=== PATIENT | male | born 1960 | race Caucasian/White ===

== ENCOUNTER 2024-10-24 06:30 | Outpatient (RCR) | payer OTHER, SELFPAY | END 2024-11-22 23:59 | disposition home or self-care (01) | LOC: MPT 06:30 | PROVIDERS: Visit Provider Orthopaedic Surgery | DX: M54.9 Dorsalgia, unspecified (principal); G89.29 Other chronic pain | CPT/HCPCS: 97110; 97162 ==

== ENCOUNTER 2024-10-24 11:38 | Emergency (ER) | payer OTHER, SELFPAY ==
--- NOTE | 2024-10-24 11:39 | USR_ITS ---
PROCEDURE INFORMATION: Exam: US Duplex Right Lower Extremity Veins, Limited Exam date and time: 10/24/2024 12:25 PM Age: 64 years old Clinical indication: Swelling (edema) of limb; Lower extremity, right; Additional info: Leg swelling TECHNIQUE: Imaging protocol: Real-time duplex ultrasound of the right extremity with 2-D dunn scale, color Doppler flow and spectral waveform analysis including responses to compression and other maneuvers (when performed) with image documentation. Limited exam was focused on the right lower extremity veins. COMPARISON: CR (LOW EXM, ) 10/24/2024 11:58 AM FINDINGS: Right deep veins: Unremarkable. The common femoral, femoral, proximal profunda femoral and popliteal veins are patent without thrombus. Normal Doppler waveforms. Normal compressibility and/or augmentation response. Superficial veins: Greater saphenous vein at the saphenofemoral junction is patent without thrombus. Soft tissues: Unremarkable. US/[place] [id number] IMPRESSION: No evidence of deep vein thrombosis.
--- OUTSIDE RECORDS SUMMARY | 2024-10-24 11:44 | XMS_ITS | Clinical Summary ---
Author Organization [facility] Address [address] [place] [address] Phone Care Team Providers Care Cartographic Technician Name Role Phone Adná Sawyer MD Primary Care Provider [phone] Allergies Active Allergy Reactions Criticality Noted Date Comments Penicillins Rash Low 03/05/2009 Medications multivitamin (MULTIPLE VITAMIN) Oral tablet Take 1 Tab by mouth daily. Active VIT C/E/ZN/COPPR/LUTEI N/ZEAXAN (PRESERVISION AREDS 2 ORAL) Take by mouth. A ctive aspirin (ECOTRIN EC) 81 mg Tablet, Delayed Release (E.C.) Take 81 mg by mouth daily. Active ascorbic acid, vitamin C, (VITAMIN C) 100 mg Tablet Take 100 mg by mouth daily. Active atorvastatin (LIPITOR) 20 mg tabletIndications: Hyperlipidemia, unspecified hyperlipidemia type Take 1 tablet by mouth once daily 90 Tablet 3 0 Active amitriptyline (ELAVIL) 10 mg tabletIndications: Neuroforaminal stenosis of cervical spine,Chronic tension-type headache, not intractable Take 2 Tablets (20 mg) by mouth daily at bedtime. 60 Tablet 1 0 Active losartan (COZAAR) 100 mg tabletIndications: Essential hypertension Take 1 tablet by mouth once daily 90 Tablet 2 0 Active cpap remote medical coder AUTO CPAP@ 5-15cwp with heated humidifier; Face to Face within 6 mo: yes; Length of Need: 99 mo; nasal mask with headgear q 6 mo; mask only q 3 mo;2cushions q mo; Tubing Heated Yes; non-heated No 1/ 3 mo; H20 Chamber 1/ 6 mo; chin strap/ 6 mo; filters (disp 2 / mo, perm 1 /6 mo) Resmed 1 Each 0 Active albuterol HFA 90 mcg inhalerIndications :Acute bronchitis, unspecified organism Take 2 Puffs by inhalation every 4 hours as needed for Shortness of Breath or Wheezing. 8 Gram 1 0 Active doxycycline hyclate (VIBRAMYCIN) 100 mg capsule TAKE 1 CAPSULE BY MOUTH TWICE DAILY FOR 10 DAYS 0 Active methylPREDNISolone (MEDROL DOSPACK) 4 mg Tablets, Dose Pack TAKE BY MOUTH DIRECTED ON INSIDE OF PACKAGE 0 Active potassium chloride (KLOR-CON) 20 mEq Extended Release tabletIndications: Hypokalemia Take 1 Tablet (20 mEq) by mouth daily. 5 Tablet 0 Active amLODIPine (NORVASC) 10 mg tablet Take 1 tablet by mouth once daily 90 Tablet 1 0 Active HYDROCHLOROTHIAZID E 25 mg tabletIndications: Essential hypertension Take 1 tablet by mouth once daily 90 Tablet 1 1 Active hydrALAZINE (APRESOLINE) 25 mg tablet TAKE 1 TABLET BY MOUTH EVERY 6 HOURS 360 Tablet 1 Active allopurinoL (ZYLOPRIM) 100 mg tabletIndications: CLL (chronic lymphocytic leukemia) ([facility]/HCC) Take 1 Tablet (100 mg) by mouth 2 times daily. 180 Tablet 1 Active Active Problems Problem Noted Date Diagnosed Date Neuroforaminal stenosis of cervical spine 2019 Hypertensive emergency 10/19/2019 Bradycardia 10/19/2019 Severe obesity (BMI 35.0-39.9) with comorbidity 10/03/2019 CLL (chronic lymphocytic leukemia) 05/31/2017 Overview (05/31/2017): Followed by oncology. Essential hypertension 11/14/2014 Chronic tension-type headache, not intractable 0 11/14/2014 Nasal turbinate hypertrophy 06/02/2014 Chronic sinusitis 06/02/2014 Diplopia 06/02/2014 OM (otitis media), recurrent 03/15/2014 Carpal tunnel syndrome 01/23/2010 Hyperlipidemia 09/13/2009 Diverticulosis 09/13/2009 Resolved Problems Problem Noted Date Diagnosed Date Resolved Date Obesity (BMI 35.0-39.9 without comorbidity) 10/03/2019 10/03/2019 Family History Medical History Relation Name Comments Cancer Father skin Diabetes Father Hypertension Father Cancer Mother Hypertension Mother Relation Name Status Comments Father Mother Alive Social History Tobacco Use Types Packs/Day Years Used Date Smoking Tobacco: Never Smokeless Tobacco: Never Tobacco Cessation:Counseling Given: No Alcohol Use Standard Drinks/Week Comments No 0 (1 standard drink = 0.6 oz pur e alcohol) Sex and Gender Information Value Date Recorded Sex Assigned at Not on file 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 Gender Identity Not on file Sexual Orientation Not on file Occupation Industry Job Start Date Job End Date Not on file Not on file Not on file Not on file Last Filed Vital Signs Vital Sign Reading Time Taken Comments Blood Pressure 118/76 07/18/2020 2:10 PM CDT Pulse 65 07/18/2020 2:10 PM CDT Temperature 36.1 C (97 F) 07/18/2020 2:10 PM CDT Respiratory Rate 16 12/27/2019 4:19 PM SPACE CONTROLLER Oxygen Saturation 99% 07/18/2020 2:10 PM CDT Inhaled Oxygen Concentration - - Weight 117.9 kg (260 lb) 07/18/2020 2:10 PM CDT Height 177.8 cm (5' 10 ) 07/18/2020 2:10 PM CDT Body Mass Index 37.31 07/18/2020 2:10 PM CDT Plan of Treatment Health Maintenance Due Date Last Done Comments DTAP/TDAP/TD VACCINES (1 - Tdap) 1980 ZOSTER VACCINE (1 of 2) 1980 COLORECTAL SCREENING 2006 Colorectal Cancer Screening 2006 FIT-DNA Q 3 years 2006 FIT/FOBT Q 1 year 2006 Flex Sig/CT Colonography Q 5 years 2006 RSV VACCINE (60+ or ) (1 - Risk 60-74 years 1-dose series) 2021 Pre-Diabetes and Diabetes Screening 10/16/2022 10/17/2019 INFLUENZA VACCINE (#1) 2024 12/27/2019 Preventative Visit- Commercial Completed 0 03/23/2024, 12/08/2023, 02/19/2023, Additional history exists Procedures Procedure Name Priority Date/Time Associated Diagnosis Comments HEMOGLOBIN A1C Routine 10/17/2019 5:25 PM CDT Hyperglycemia from Last 3 Months or Most Recently Relevant to Health Maintenance Results * HEMOGLOBIN A1C (10/17/2019 5:25 PM CDT) HEMOGLOBIN A1C 5.5 See Comment % 10/17/2019 8:52 PM CDT [facility] EST. AVG GLUCOSE, A1C 111 mg/dL 10/17/2019 8:52 PM CDT [facility] Blood Venipuncture / Unknown 10/17/2019 5:25 PM CDT 10/17/2019 8:20 PM CDT Narrative [facility] - 10/17/2019 8:52 PM CDT HGB A1C INTERPRETATION NORMAL: <5.7% PRE-DIABETES: 5.7 - 6.4% DIABETES: 6.5% OR GREATER Falsely low A1C measurements can occur when: 1. Anemia and/or hemolytic anemia is present. 2. Hemoglobin variants present. 3. Renal failure. 4. Transfusion of blood product in the last 120 days. We recommend ordering a fructosamine test(UVP2542) to more accurately assess glycemic status if any of the above conditions are present. Patricia Harris WEBSPHERE ARCHITECT CHEMISTRY ORDERABLES Final Res ult [facility] CLIA# [id number] [address] [place] [address] from Last 3 Months or Most Recently Relevant to Health Maintenance Insurance [employer] OPEN ACCESS PLUS Advance Directives For more information, please contact: [phone] * Full Code (Latest Code Status on File) Date Activated Date Inactivated Comments 10/19/2019 5:52 AM 10/21/2019 2:58 PM * Full Code Date Activated Date Inactivated Comments 02/26/2010 8:11 AM 02/27/2010 2:32 AM * Full Code Date Activated Date Inactivated Comments 02/26/2010 8:02 AM 02/26/2010 8:11 AM Care Teams Cartographic Technician Relationship Specialty Start Date End Date Adán Sawyer MD [address], [place] [address] PCP - General Family Practice 11/09/14
--- OUTSIDE RECORDS SUMMARY | 2024-10-24 11:44 | XMS_ITS | Encounter Summary ---
Author Organization [facility] Address [address] [place] [address] Care Team Providers Care Conservation Engineer Name Role Phone Adán Sawyer MD Primary Care Provider [phone] Encounter Details Date Type Department Care Team (Late st Contact Info) Description 04/22/2000 Outpatient Historical [facility] E [place] 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
--- OUTSIDE RECORDS SUMMARY | 2024-10-24 11:44 | XMS_ITS ---
Author Organization [facility] Address [address] [place] [address] Phone Care Team Providers Care Chemical Instrumentation Officer Name Role Phone Adán Sawyer MD Primary Care Provider [phone] Active Problems Problem Noted Date Diagnosed Date [...] tunnel syndrome 01/23/2010 Hyperlipidemia 09/13/2009 Diverticulosis 09/13/2009 Current Treatment and Therapy Plans No current plan information found. Past Treatment and Therapy Plans No past plan information found. Lifetime Dose Tracking * Chemical Lifetime Dose Automatic Entry Manual Entr y Effective Dose 25.8 mSv 25.8 mSv 0 mSv Total DLP 2,094 DLP 2,094 DLP 0 DLP CTDIvol Max 28.4 mGy 28.4 mGy 0 mGy CTDIvol Min 25.5 mGy 25.5 mGy 0 mGy Resolved Problems Problem Noted Date Diagnosed Date Resolved Date Obesity (BMI 35.0-39.9 without comorbidity) 10/03/2019 10/03/2019
--- OUTSIDE RECORDS SUMMARY | 2024-10-24 11:44 | XMS_ITS | Encounter Summary ---
Author Organization [facility] Address [address] [place] [address] Care Team Providers Care Immigration Associate Name Role Phone Adán Sawyer MD Primary Care Provider [phone] Encounter Details Date Type Department Care Team (Latest Contact Info) Description 04/22/2000 Outpatient Historical [facility] Ear, Nose and Throat E [place] [address] 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
--- OUTSIDE RECORDS SUMMARY | 2024-10-24 11:44 | XMS_ITS | Encounter Summary ---
Author Organization [facility] Address [address] [place] [address] Care Team Providers Care Hotel Services Sales Representative Name Role Phone Adán Sawyer MD Primary Care Provider [phone] Encounter Details Date Type Department Care Team (Latest Contact Info) Description 12/09/2000 Outpatient [facility] Ear, Nose and Throat [address] [place] 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
--- OUTSIDE RECORDS SUMMARY | 2024-10-24 11:44 | XMS_ITS | Encounter Summary ---
Author Organization [facility] Address [address] [place] [address] Care Team Providers Care Can Feeder Name Role Phone Adán Sawyer MD Primary Care Provider [phone] Encounter Details Date Type Department Care Team (Late st Contact Info) Description 12/09/2000 Outpatient Historical [facility] Ear, Nose and Throat E [place] [address] 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
[2024-10-24 11:52] VITALS: BP 148/82; PULSE 59; RESP 18; TEMP 36.5; O2SAT 96
--- NOTE | 2024-10-24 11:52 | XRR_ITS ---
PROCEDURE INFORMATION: Exam: XR Right Knee Exam date and time: 10/24/2024 11:58 AM Age: 64 years old Clinical indication: Swelling or effusion of joint; Knee; Additional info: Knee pain TECHNIQUE: Imaging protocol: Radiologic exam of the right knee. Views: 3 views. COMPARISON: No relevant prior studies available. FINDINGS: Bones/joints: Normal. Soft tissues: There is a suprapatellar effusion. No radiopaque foreign bodies identified. XR/XR knee RT 3V* [id number] IMPRESSION: Suprapatellar effusion.
--- NOTE | 2024-10-24 11:53 | W.ED.GENADLT ---
HPI - General Adult General: Chief complaint: Extremity Injury, Lower Stated complaint: rt leg swollen Time Seen by Provider: 10/24/24 11:39 Source: patient Mode of arrival: ambulatory Limitations: no limitations History of Present Illness: 64-year-old male states been having some pain started in his right hip and radiate down his leg is gone for 2 weeks. States been seeing a chiropractor he has now had some swelling in his right leg with some right knee pain. States he was concerned about a blood clot states pain is worse with movement no history of blood clots in the past denies any injuries. Associated symptoms: Deny chest pain, dyspnea, headache(s), nausea, rash or vomiting Related Data Home Medications ?Medication ?Instructions ?Recorded ?Confirmed atorvastatin 20 mg tablet 20 mg PO DAILY 12/01/21 02/04/24 fexofenadine 60 mg tablet 60 mg PO BID 12/01/21 02/04/24 furosemide 20 mg tablet (Lasix) 20 mg PO DAILY 12/01/21 02/04/24 gabapentin 300 mg capsule 300 mg PO TID 12/01/21 02/04/24 hydralazine 25 mg tablet 25 mg PO TID 12/01/21 02/04/24 hydrochlorothiazide 25 mg tablet 25 mg PO DAILY 12/01/21 02/04/24 losartan 100 mg tablet 100 mg PO DAILY 12/01/21 02/04/24 multivitamin 1 tab PO DAILY 12/01/21 02/04/24 Previous Rx's ?Medication ?Instructions ?Recorded albuterol sulfate 90 mcg/actuation 2 puff inhalation Q6H PRN 07/10/23 aerosol inhaler shortness of breath or wheezing #8.5 grams ofncafzoenpabmc-fpovhnywxnmvfqv-SH 5 ml PO Q6H PRN cold symptoms #118 07/10/23 2 mg-30 mg-10 mg/5 mL oral syrup mL (Bromfed DM) prednisone 20 mg tablet 20 mg PO DAILY 5 days #5 tabs 07/10/23 clarithromycin 500 mg tablet 500 mg PO BID 10 days #20 tabs 02/04/24 Allergies Allergy/AdvReac Type Severity Reaction Status Date / Time Penicillins Allergy Intermediate rash Verified 02/04/24 13:10 Review of Systems Const: Denies: fever(s), chills, body aches or change in appetite ENMT: Denies: throat pain or dental pain Card: Denies: chest pain Resp: Denies: dyspnea GI: Denies: abdominal pain, nausea, vomiting or diarrhea Musc: Reports: extremity pain; Denies: neck pain or back pain Skin/Breast: Denies: rash Neuro: Denies: headache(s) PFSH ED PFSH: Social History Smoking and tobacco/nicotine status: never used tobacco/nicotine Physical Exam Const: COMMON NORMALS: no acute distress, patient oriented x3 and healthy appearing HENMT: COMMON NORMALS: normocephalic and atraumatic HEAD & SCALP: normocephalic and atraumatic Eye: COMMON NORMALS: Equal, round and reactive pupils present and EOMs intact bilaterally PUPIL: Yes Equal, round and reactive pupils present Neck/C-Spine: COMMON NORMALS: full ROM and supple Chest: COMMONS NORMALS: normal inspection of the chest Resp: COMMON NORMALS: normal respiratory effort Cardio: COMMON NORMALS: regular rate and regular rhythm RATE: regular rate RHYTHM: regular rhythm Extremity: COMMON NORMALS: full ROM NARRATIVE EXTREMITY EXAM: Slight swelling noted to right lower leg mild tenderness over right knee no warmth to touch no pain with range of motion distal pulses sensation intact Neuro: COMMON NORMALS: patient oriented x3, moves all extremities and no focal motor deficits Psych: COMMON NORMALS: mental status grossly normal, Normal thought process present and cooperative THOUGHT PROCESS: Normal thought process present Skin: COMMON NORMALS: no rashes or lesions noted and no wounds GENERAL SKIN EXAM: no rashes or lesions noted Course Vital Signs: Vital signs: Vital Signs Temperature 97.7 F 10/24/24 11:52 Pulse Rate 59 L 10/24/24 11:52 Respiratory Rate 18 10/24/24 11:52 Blood Pressure 148/82 10/24/24 11:52 Pulse Oximetry 96 10/24/24 11:52 Oxygen Delivery Me thod Room Air 10/24/24 11:52 MDM - General Adult Medical Decision Making Patient presents with right leg pain ultrasound showed no signs of DVT x-ray of his knee is negative likely arthritic pain we will get him follow-up with orthopedist he is return if worsening he understands agrees to plan. Medical Records I reviewed the patient's medical records. All radiology interpretation(s) finalized by discharge Discharge Plan Discharge Patient Disposition: Home Clinical Impression: Leg pain, right Condition: Stable Prescriptions: No Action povidone-iodine [Betadine Swabsticks] 10 % swab 1 applic topical ONCE Qty: 1 0RF lidocaine (PF) 20 mg/mL (2 %) solution 40 mg SUBCUT ONCE Qty: 2 0RF clarithromycin 500 mg tablet 500 mg PO BID 10 Days Qty: 20 0RF losartan 100 mg tablet 100 mg PO DAILY furosemide [Lasix] 20 mg tablet 20 mg PO DAILY gabapentin 300 mg capsule 300 mg PO TID fexofenadine 60 mg tablet 60 mg PO BID atorvastatin 20 mg tablet 20 mg PO DAILY multivitamin Tablet 1 tab PO DAILY hydralazine 25 mg tablet 25 mg PO TID hydrochlorothiazide 25 mg tablet 25 mg PO DAILY albuterol sulfate 90 mcg/actuation HFA aerosol inhaler 2 puff inhalation Q6H PRN (Reason: shortness of breath or wheezing) Qty: 8.5 0RF yinrrivydjfxovz-kwdklkwzc-NU [Bromfed DM] 2-30-10 mg/5 mL syrup 5 ml PO Q6H PRN (Reason: cold symptoms) Qty: 118 0RF prednisone 20 mg tablet 20 mg PO DAILY 5 Days Qty: 5 0RF Discharge Orders: Discharge ED (Routine); Ordered 10/24/24 Ordered By: Lena Palm Referrals: Abdulkadir Bautista DO [Physician, Orthopedics] - 4-7 days Juve Sawyer DO [Primary Care Provider] Discharge Diet: Advance as tolerated Discharge Activity: Resume usual activity Patient Instructions: Leg Pain (ED) Print Language: Portuguese Coding Level of Care Code ED Head Teller for [facility]
[2024-10-24] MEDS: HYDROcodone-acetaminophen 5-325 mg Tablet 1 TAB PO (12:10)
--- NOTE | 2024-10-24 14:13 | DCPLANNER ---
messaged ortho for er f/u
== END 2024-10-24 13:38 | disposition home or self-care (01) ==
PROVIDERS: Emergency Provider Emergency Medicine; PCP Family Medicine
DX: M79.605 Pain in left leg (principal)
CPT/HCPCS: 73562; 93971; 96372; 99284; J1100; J9999

== ENCOUNTER → 2024-10-27 07:58 | Outpatient (BNVA) | payer OTHER, SELFPAY | PROVIDERS: PCP Family Medicine; Visit Provider Orthopaedic Surgery | DX: M48.062 Spinal stenosis, lumbar region with neurogenic claudication (principal); M25.561 Pain in right knee; M54.9 Dorsalgia, unspecified; M25.559 Pain in unspecified hip | CPT/HCPCS: 72110; 73502; 73560; 73565 ==

== ENCOUNTER 2024-11-30 12:00 | Outpatient (RCR) | payer OTHER, SELFPAY | END 2024-12-23 23:59 | disposition home or self-care (01) | LOC: MPT 12:00 | PROVIDERS: Visit Provider Orthopaedic Surgery | DX: M54.59 Other low back pain (principal); G89.29 Other chronic pain | CPT/HCPCS: 97110; 97140 ==